=== PATIENT | female | born 1995 | race Caucasian/White ===

== ENCOUNTER 2024-03-09 11:35 | Emergency (ER) | payer BC ==
[2024-03-09 11:41] VITALS: RESP 16
--- NOTE | 2024-03-09 11:54 | ED ---
General Adult HPI - General Chief complaint: Recheck/Abnormal Lab/Rx Stated complaint: Poss 8 weeks preg./issues Time Seen by Provider: 03/09/24 11:51 Source: patient, RN notes reviewed Mode of arrival: ambulatory Limitations: no limitations - History of Present Illness Initial comments: 28-year-old G1, P0 female presenting for test. Patient states last menstrual period was January 11, and had at home positive test beginning of February. Reports she went to [facility] today where they told her her test was negative. She went home and took an at home test, which returned positive. She is here today hoping to have a test. Denies abdominal pain or cramping, vaginal bleeding. Scheduled for OB appointment in March at [facility] Data Home Medications Medication Instructions Recorded Confirmed No Known Home Medications 03/09/24 03/09/24 Allergies Allergy/AdvReac Type Severity Reaction Status Date / Time No Known Allergies Allergy Verified 03/09/24 12:22 Review of Systems ROS Statement: Those systems with pertinent positive or pertinent negative responses have been documented in the HPI. ROS Other: All systems not noted in ROS Statement are negative. Past Medical History Past Medical History: No Reported History History of Any Multi-Drug Resistant Organisms: None Reported Past Surgical History: No Surgical Hx Reported Past Psychological History: No Psychological Hx Reported Smoking Status: Never smoker Past Alcohol Use History: None Reported Past Drug Use History: None Reported General Exam Limitations: no limitations General appearance: alert, in no apparent distress Head exam: Present: atraumatic, normocephalic, normal inspection GI/Abdominal exam: Present: soft, normal bowel sounds. Absent: distended, tenderness, guarding, rebound, rigid Neurological exam: Present: alert, oriented X3 Psychiatric exam: Present: normal affect, normal mood Skin exam: Present: warm, dry, intact, normal color. Absent: rash Course Vital Signs 03/09/24 11:37 Temperature 97.8 F Pulse Rate 93 Respiratory 16 Rate Blood Pressure 120/78 O2 Sat by Pulse 99 Oximetry Medical Decision Making - Medical Decision Making Was pt. sent in by a medical professional or institution (, PA, MANAGER CLINIC, urgent care, hospital, or fdc...) When possible be specific @ -No Did you speak to anyone other than the patient for history (EMS, parent, family, police, friend...)? What history was obtained from this source @ -No Did you review nursing and triage notes (agree or disagree)? Why? @ -I reviewed and agree with nursing and triage notes Were old charts reviewed (outside hosp., previous admission, EMS record, old EKG, old radiological studies, urgent care reports/EKG's, fdc records)? Report findings @ -No old charts were reviewed Differential Diagnosis (chest pain, altered mental status, abdominal pain women, abdominal pain men, vaginal bleeding, weakness, fever, dyspnea, syncope, headache, dizziness, GI bleed, back pain, seizure, CVA, palpatations, mental health, musculoskeletal)? @ - , spontaneous , threatened , molar , ectopic this is not meant to be an all-inclusive list. EKG interpreted by me (3pts min.). @ -None X-rays interpreted by me (1pt min.). @ -None done CT interpreted by me (1pt min.). @ -None done U/S interpreted by me (1pt. min.). @ -None done What testing was considered but not performed or refused? (CT, X-rays, U/S, labs)? Why? @ -None What meds were considered but not given or refused? Why? @ -None Did you discuss the management of the patient with other professionals (professionals i.e. , PA, MANAGER CLINIC, lab, RT, psych nurse, social media executive, polisher sand, teacher, adult parole officer, bilingual case manager)? Give summary @ -No Was smoking cessation discussed for >3mins.? @ -No Was critical care preformed (if so, how long)? @ -No Were there social determinants of health that impacted care today? How? (Homelessness, low income, unemployed, alcoholism, drug addiction, transporta tion, low edu. Level, literacy, decrease access to med. care, intermediate, rehab)? @ -No Was there de-escalation of care discussed even if they declined (Discuss DNR or withdrawal of care, Hospice)? DNR status @ -No What co-morbidities impacted this encounter? (DM, HTN, Smoking, COPD, CAD, Cancer, CVA, ARF, Chemo, Hep., AIDS, mental health diagnosis, sleep apnea, morbid obesity)? @ -None Was patient admitted / discharged? Hospital course, mention meds given and route, prescriptions, significant lab abnormalities, going to OR and other pertinent info. @ -Discharge. This is a 28-year-old female presenting to the ER for test. LMP 01/12/24. Denies abdominal pain, vaginal bleeding. Vitals wnl. Abdomen is soft and nontender. Lab work including CBC, CMP was unremarkable. hCG levels greater than 225,000. Ultrasound reveals single intrauterine gestation estimated 8 weeks 0 days, cardiac activity 174 bpm. Blood type O+. Urinalysis unremarkable. Discussed findings with patient. Advised to follow-up with OB. Return precautions discussed and patient conveys understanding and agrees to plan. Case was discussed with my ED attending Dr. Norman. Patient discharged in stable condition. Diagnosed new problem with uncertain prognosis? @ -No Drug Therapy requiring intensive monitoring for toxicity (Heparin, Nitro, Insulin, Cardizem)? @ -No Were any procedures done? @ -No Diagnosis/symptom? @ -Early Acute, or Chronic, or Acute on Chronic? @ -Acute Uncomplicated (without systemic symptoms) or Complicated (systemic symptoms)? @ -Uncomplicated Side effects of treatment? @ -No Exacerbation, Progression, or Severe Exacerbation? @ -No Poses a threat to life or bodily function? How? (Chest pain, USA, [place], pneumonia, PE, COPD, DKA, ARF, appy, cholecystitis, CVA, Diverticulitis, Homicidal, Suicidal, threat to staff... and all critical care pts) @ -No - Lab Data Result diagrams: 03/09/24 12:59 03/09/24 12:59 Lab Results 03/09/24 03/09/24 03/09/24 Range/Units 12:04 12:04 12:59 WBC 7.0 (3.8-10.6) k/uL RBC 4.96 (3.80-5.40) m/uL Hgb 13.6 (11.4-16.0) gm/dL Hct 42.7 (34.0-46.0) % MCV 86.1 (80.0-100.0) fL MCH 27.5 (25.0-35.0) pg MCHC 32.0 (31.0-37.0) g/dL RDW 12.6 (11.5-15.5) % Plt Count 301 (150-450) k/uL MPV 7.0 Neutrophils % 70 % Lymphocytes % 24 % Monocytes % 5 % Eosinophils % 1 % Basophils % 0 % Neutrophils # 4.9 (1.3-7.7) k/uL Lymphocytes # 1.7 (1.0-4.8) k/uL Monocytes # 0.3 (0-1.0) k/uL Eosinophils # 0.0 (0-0.7) k/uL Basophils # 0.0 (0-0.2) k/uL Sodium (137-145) mmol/L Potassium (3.5-5.1) mmol/L Chloride (98-107) mmol/L Carbon Dioxide (22-30) mmol/L Anion Gap mmol/L BUN (7-17) mg/dL Creatinine (0.52-1.04) mg/dL Est GFR (CKD-EPI)AfAm (>60 ml/min/1.73 sqM) Est GFR (CKD-EPI)NonAf (>60 ml/min/1.73 sqM) Glucose (74-99) mg/dL Calcium (8.4-10.2) mg/dL Total Bilirubin (0.2-1.3) mg/dL AST (14-36) U/L ALT (4-34) U/L Alkaline Phosphatase (38-126) U/L Total Protein (6.3-8.2) g/dL Albumin (3.5-5.0) g/dL HCG, Quant mIU/mL Urine Color Colorless Urine Appearance Clear (Clear) Urine pH 6.5 (5.0-8.0) Ur Specific [place] 1.004 (1.001-1.035) Urine Protein Negative (Negative) Urine Glucose (UA) Negative (Negative) Urine Ketones Negative (Negative) Urine Blood Negative (Negative) Urine Nitrite Negative (Negative) Urine Bilirubin Negative (Negative) Urine Urobilinogen <2.0 (<2.0) mg/dL Ur Leukocyte Esterase Negative (Negative) Urine HCG, Qual Detected (Not Detectd) Blood Type Blood Type Recheck Bld Type Recheck Status 03/09/24 03/09/24 Range/Units 12:59 12:59 WBC (3.8-10.6) k/uL RBC (3.80-5.40) m/uL Hgb (11.4-16.0) gm/dL Hct (34.0-46.0) % MCV (80.0-100.0) fL MCH (25.0-35.0) pg MCHC (31.0-37.0) g/dL RDW (11.5-15.5) % Plt Count (150-450) k/uL MPV Neutrophils % % Lymphocytes % % Monocytes % % Eosinophils % % Basophils % % Neutrophils # (1.3-7.7) k/uL Lymphocytes # (1.0-4.8) k/uL Monocytes # (0-1.0) k/uL Eosinophils # (0-0.7) k/uL Basophils # (0-0.2) k/uL Sodium 137 (137-145) mmol/L Potassium 4.4 (3.5-5.1) mmol/L Chloride 106 (98-107) mmol/L Carbon Dioxide 23 (22-30) mmol/L Anion Gap 8 mmol/L BUN 11 (7-17) mg/dL Creatinine 0.44 L (0.52-1.04) mg/dL Est GFR (CKD-EPI)AfAm >90 (>60 ml/min/1.73 sqM) Est GFR (CKD-EPI)NonAf >90 (>60 ml/min/1.73 sqM) Glucose 86 (74-99) mg/dL Calcium 9.8 (8.4-10.2) mg/dL Total Bilirubin 0.5 (0.2-1.3) mg/dL AST 30 (14-36) U/L ALT 40 H (4-34) U/L Alkaline Phosphatase 60 (38-126) U/L Total Protein 7.5 (6.3-8.2) g/dL Albumin 4.6 (3.5-5.0) g/dL HCG, Quant >862869.0 mIU/mL Urine Color Urine Appearance (Clear) Urine pH (5.0-8.0) Ur Specific [place] (1.001-1.035) Urine Protein (Negative) Urine Glucose (UA) (Negative) Urine Ketones (Negative) Urine Blood (Negative) Urine Nitrite (Negative) Urine Bilirubin (Negative) Urine Urobilinogen (<2.0) mg/dL Ur Leukocyte Esterase (Negative) Urine HCG, Qual (Not Detectd) Blood Type O Positive Blood Type Recheck No Previous Record Bld Type Recheck Status [facility] ONLY Disposition Clinical Impression: at early stage Disposition: HOME SELF-CARE Condition: Stable Instructions (If sedation given, give patient instructions): (ED) Additional Instructions: Follow-up for SEISMIC COMPUTER appointment. Please return to the Emergency Department if symptoms worsen or any other concerns. Is patient prescribed a controlled substance at d/c from ED?: No Referrals: None,Stated [Primary Care Provider] - 1-2 days Time of Disposition: 15:24
[2024-03-09 13:10] LABS: Basophils % (A) 0 %; Eosinophils % (A) 1 %; HCT 42.7 % (34.0-46.0); HGB 13.6 gm/dL (11.4-16.0); Lymphocytes # (A) 1.7 k/uL (1.0-4.8); Lymphocytes % (A) 24 %; MCH 27.5 pg (25.0-35.0); MCV 86.1 fL (80.0-100.0); Monocytes # (A) 0.3 k/uL (0-1.0); Monocytes % (A) 5 %; Neutrophils # (A) 4.9 k/uL (1.3-7.7); Neutrophils % (A) 70 %; Platelet Count 301 k/uL (150-450); RBC 4.96 m/uL (3.80-5.40); RDW 12.6 % (11.5-15.5)
[2024-03-09 13:18] LABS: ALT 40 U/L (4-34); AST 30 U/L (14-36); African American GFR (CKD) >90 (>60 ml/min/1.73 sqM); Albumin 4.6 g/dL (3.5-5.0); Alkaline Phosphatase 60 U/L (38-126); Anion Gap 8 mmol/L; Blood Urea Nitrogen 11 mg/dL (7-17); Calcium 9.8 mg/dL (8.4-10.2); Carbon Dioxide 23 mmol/L (22-30); Chloride 106 mmol/L (98-107); Glucose 86 mg/dL (74-99); Non-African American GFR(CKD) >90 (>60 ml/min/1.73 sqM); Potassium 4.4 mmol/L (3.5-5.1); Sodium 137 mmol/L (137-145); Total Bilirubin 0.5 mg/dL (0.2-1.3); Total Protein 7.5 g/dL (6.3-8.2)
--- NOTE | 2024-03-09 13:55 | US ---
EXAMINATION TYPE: Transabdominal DATE OF EXAM: 03/09/2024 1:28 PM COMPARISON: NONE CLINICAL INDICATION: Female, 28 years old with history of ; No symptoms, patient just wanted a test EXAM PERFORMED: Transabdominal (TA) EXAM MEASUREMENTS: GESTATIONAL AGE / DATING Physician Established: Not yet established Dates by LMP: (8 weeks/1 days) EDC: 10/18/2024 Dates by First Scan: No previous this is first scan Dates by Current Scan for: (8 weeks/0 days) EDC: 10/19/2024 MATERNAL ANATOMY Uterus: 9.2 x 5.7 x 6.7cm Right Ovary: not seen due to overlying bowel gas Left Ovary: 3.2 x 2.5 x 2.7cm Post CDS / Adnexa: wnl Presence of free fluid: no Presence of corpus luteal cyst: not seen Presence of subchorionic bleed: no GESTATION / SURVEY CRL: 1.7cm (8 weeks/0 days) Yolk Sac (normal less than 6mm): 3.0mm Heart Rate: 174 bpm Rhythm: Normal IUP: Viable IUP Date of LMP: 01/12/2024 Beta HcG (if available): Not available at time of exam Urinary bladder is sonolucent. IMPRESSION: 1. Single intrauterine gestation estimated at 8 weeks 0 days gestation based on crown-rump length. Ca rdiac activity measures 174 bpm [facility], , 03/09/2024 1:52 PM
[2024-03-09 14:44] LABS: HCG,Quantitative Serum >225000.0 mIU/mL
[2024-03-09 15:08] LABS: Appearance,Urine Clear (Clear); Bilirubin,Urine Negative (Negative); Blood,Urine Negative (Negative); Color,Urine Colorless; Glucose,Urine (UA) Negative (Negative); Ketones,Urine Negative (Negative); Leukocyte Esterase,Urine Negative (Negative); Nitrite,Urine Negative (Negative); PH, Urine 6.5 (5.0-8.0); Protein,Urine Negative (Negative); Specific Gravity,Urine 1.004 (1.001-1.035); Urobilinogen,Urine <2.0 mg/dL (<2.0)
[2024-03-09 15:58] VITALS: BP 125/76; PULSE 86; TEMP 98.1
== END 2024-03-09 15:58 | disposition home or self-care (01) ==
LOC: EC 11:35
DX: Z32.02 Encounter for pregnancy test, result negative (principal)
CPT/HCPCS: 36415; 76801; 80053; 81003; 81025; 84702; 85025; 86900; 86901; 99284

== ENCOUNTER 2024-08-03 14:35 | Emergency (ER) | payer BC ==
--- NOTE | 2024-08-03 15:45 | ED ---
General Adult HPI - General Chief complaint: Arrhythmia/Palpitations Stated complaint: rapid heart rate Time Seen by Provider: 08/03/24 15:13 Source: patient Mode of arrival: ambulatory Limitations: no limitations - History of Present Illness Initial comments: Dictation was produced using [employer] dictation software. please excuse any grammatical, word or spelling errors. Chief Complaint: 29-year-old female with fever History of Present Illness: Patient 29-year-old female she is here in the emergency department for fever. Patient currently 29 weeks . She went to an urgent care earlier today and was tested for flu COVID and strep. She was discharged from the urgent care. She had a conversation with the nurse at her ELECTRONICS ENGINEERING PROFESSOR's office, Dr. Beard and was told come to the ER. Patient denies any abdominal pain. States that she has a mild sore throat. Denies any ear pain. No nausea vomiting. The ROS documented in this emergency department record has been reviewed and confirmed by me. Those systems with pertinent positive or negative responses have been documented in the HPI. All other systems are other negative and/or noncontributory. - Related Data Home Medications Medication Instructions Recorded Confirmed No Known Home Medications 03/09/24 08/03/24 Allergies Allergy/AdvReac Type Severity Reaction Status Date / Time No Known Allergies Allergy Verified 08/03/24 17:26 Review of Systems ROS Statement: Those systems with pertinent positive or pertinent negative responses have been documented in the HPI. ROS Other: All systems not noted in ROS Statement are negative. Past Medical History Past Medical History: No Reported History History of Any Multi-Drug Resistant Organisms: None Reported Past Surgical History: No Surgical Hx Reported Past Psychological History: No Psychological Hx Reported Smoking Status: Never smoker Past Alcohol Use History: None Reported Past Drug Use History: None Reported General Exam - General Exam Comments Initial Comments: PHYSICAL EXAM: General Impression: Alert and oriented x3, not in acute distress HEENT: Normocephalic atraumatic, extra-ocular movements intact, pupils equal and reactive to light bilaterally, mucous membranes moist, mild oropharyngeal erythema Cardiovascular: Heart regular rate and rhythm Chest: Able to complete full sentences, no retractions, no tachypnea Abdomen: abdomen soft, non-tender, non-distended, no organomegaly Musculoskeletal: Pulses present and equal in all extremities, no peripheral edema Motor: no focal deficits noted Neurological: CN II-XII grossly intact, no focal motor or sensory deficits noted Skin: Intact with no visualized rashes Psych: Normal affect and mood Limitations: no limitations Course Vital Signs 08/03/24 08/03/24 14:58 17:39 Temperature 98.3 F Pulse Rate 133 H 111 H Respiratory 18 Rate Blood Pressure 101/64 O2 Sat by Pulse 98 98 Oximetry EKG Findings - EKG Comments: EKG Findings:: My EKG interpretation: Ventricular rate 117, sinus tachycardia,. 124, QRS 98, QTc 410. No [place] prolongation, no QTC prolongation, no ST or T-wave changes noted. Overall, this EKG is unremarkable Medical Decision Making - Medical Decision Making Was pt. sent in by a medical professional or institution (, PA, NEUROLOGY PHYSICIAN ASSISTANT, urgent care, hospital, or detention...) When possible be specific @ -No Did you speak to anyone other than the patient for history (EMS, parent, family, police, friend...)? What history was obtained from this source @ -No Did you review nursing and triage notes (agree or disagree)? Why? @ -I reviewed and agree with nursing and triage notes Were old charts reviewed (outside hosp., previous admission, EMS record, old EKG, old radiological studies, urgent care reports/EKG's, detention records)? Report findings @ -No old charts were reviewed Differential Diagnosis (chest pain, altered mental status, abdominal pain women, abdominal pain men, vaginal bleeding, musculoskeletal, weakness, fever, dyspnea, syncope, headache, dizziness, GI bleed, back pain, seizure, CVA, palpatations, mental health)? @ -Differential Fever: Pneumonia, viral URI, endocarditis, myocarditis, pericarditis, otitis, sinusitis, peritonsillar Abscess, retropharyngeal Abscess, epiglottitis, per itonitis, appendicitis, Zina cystitis, diverticulitis, hepatitis, colitis, UTI, PID, TOA, pyelonephritis, prostatitis, epididymitis, meningitis, encephalitis, pulmonary embolism, CVA, thyroid storm, pancreatitis, adrenal crisis, cavernous sinus thrombosis, this is not meant to be an all-inclusive list. EKG interpreted by me (3pts min.). @ -See above X-rays interpreted by me (1pt min.). @ -Chest x-ray is nonacute CT interpreted by me (1pt min.). @ -None done U/S interpreted by me (1pt. min.). @ -None done What testing was considered but not performed or refused? (CT, X-rays, U/S, labs)? Why? @ -None What meds were considered but not given or refused? Why? @ -None Was smoking cessation discussed for >3mins.? @ -No Were there social determinants of health that impacted care today? How? (Homelessness, low income, unemployed, alcoholism, drug addiction, transportation, low edu. Level, literacy, decrease access to med. care, [facility], rehab)? @ -No Was there de-escalation of care discussed even if they declined (Discuss DNR or withdrawal of care, Hospice)? DNR status @ -No What co-morbidities impacted this encounter? (DM, HTN, Smoking, COPD, CAD, Cancer, CVA, ARF, Chemo, Hep., AIDS, mental health diagnosis, sleep apnea, morbid obesity)? @ -None Was patient admitted / discharged? Hospital course, mention meds given and route, prescriptions, significant lab abnormalities, going to OR and other pertinent info. @ -29-year-old female is 29 weeks presents with fever and sore throat. She had viral testing and strep testing done at the urgent care was all found to be negative. Vital signs are stable. Patient given IV fluids. Labs are unremarkable. Urinalysis negative. Clinical presentation consistent with viral pharyngitis. Patient discharged advised follow-up with ELECTRONICS ENGINEERING PROFESSOR. Did you discuss the management of the patient with other professionals (professionals i.e. , PA, NEUROLOGY PHYSICIAN ASSISTANT, lab, RT, psych nurse, sr. social media & mobile manager, structural engineering drafting officer, teacher, chief communications officer, case fitter)? Give summary @ -No Was critical care preformed (if so, how long)? @ -No Undiagnosed new problem with uncertain prognosis? @ -No Drug Therapy requiring intensive monitoring for toxicity (Heparin, Nitro, Insulin, Cardizem)? @ -No Were any procedures done? @ -No Diagnosis/symptom? Acute, or Chronic, or Acute on Chronic? Uncomplicated (without systemic symptoms) or Complicated (systemic symptoms)? @ -Viral pharyngitis Side effects of treatment? @ -No Exacerbation, Progression, or Severe Exacerbation? @ -No Poses a threat to life or bodily function? How? (Chest pain, USA, [place], pneumonia, PE, COPD, DKA, ARF, appy, cholecystitis, CVA, Diverticulitis, Homicidal, Suicidal, threat to staff... and all critical care pts) @ -No - Lab Data Result diagrams: 08/03/24 16:15 08/03/24 16:15 Lab Results 08/03/24 08/03/24 08/03/24 Range/Units 16:15 16:15 17:21 WBC 5.7 (3.8-10.6) k/uL RBC 4.28 (3.80-5.40) m/uL Hgb 12.3 (11.4-16.0) gm/dL Hct 36.8 (34.0-46.0) % MCV 86.0 (80.0-100.0) fL MCH 28.8 (25.0-35.0) pg MCHC 33.5 (31.0-37.0) g/dL RDW 13.3 (11.5-15.5) % Plt Count 224 (150-450) k/uL MPV 8.0 Neutrophils % 87 % Lymphocytes % 6 % Monocytes % 5 % Eosinophils % 0 % Basophils % 0 % Neutrophils # 5.0 (1.3-7.7) k/uL Lymphocytes # 0.4 L (1.0-4.8) k/uL Monocytes # 0.3 (0-1.0) k/uL Eosinophils # 0.0 (0-0.7) k/uL Basophils # 0.0 (0-0.2) k/uL Sodium 131 L (137-145) mmol/L Potassium 3.6 (3.5-5.1) mmol/L Chloride 98 (98-107) mmol/L Carbon Dioxide 21 L (22-30) mmol/L Anion Gap 12 mmol/L BUN 5 L (7-17) mg/dL Creatinine 0.53 (0.52-1.04) mg/dL Est GFR (CKD-EPI)AfAm >90 (>60 ml/min/1.73 sqM) Est GFR (CKD-EPI)NonAf >90 (>60 ml/min/1.73 sqM) Glucose 130 H (74-99) mg/dL Calcium 9.0 (8.4-10.2) mg/dL Urine Color Light Yellow Urine Appearance Clear (Clear) Urine pH 6.0 (5.0-8.0) Ur Specific [place] 1.006 (1.001-1.035) Urine Protein Negative (Negative) Urine Glucose (UA) 1+ H (Negative) Urine Ketones 1+ H (Negative) Urine Blood Negative (Negative) Urine Nitrite Negative (Negative) Urine Bilirubin Negative (Negative) Urine Urobilinogen <2.0 (<2.0) mg/dL Ur Leukocyte Esterase Negative (Negative) Disposition Clinical Impression: Viral pharyngitis Disposition: HOME SELF-CARE Condition: Good Instructions (If sedation given, give patient instructions): Pharyngitis (ED) Is patient prescribed a controlled substance at d/c from ED?: No Referrals: None,Stated [Primary Care Provider] - 1-2 days Time of Disposition: 17:46
[2024-08-03] MEDS: SODIUM CHLORIDE 0.9% 1,000 ML IV STA (16:22)
[2024-08-03 16:27] LABS: Basophils % (A) 0 %; Eosinophils % (A) 0 %; HCT 36.8 % (34.0-46.0); HGB 12.3 gm/dL (11.4-16.0); Lymphocytes # (A) 0.4 k/uL (1.0-4.8); Lymphocytes % (A) 6 %; MCH 28.8 pg (25.0-35.0); MCHC 33.5 g/dL (31.0-37.0); Monocytes # (A) 0.3 k/uL (0-1.0); Monocytes % (A) 5 %; Neutrophils % (A) 87 %; Platelet Count 224 k/uL (150-450); RBC 4.28 m/uL (3.80-5.40); RDW 13.3 % (11.5-15.5); WBC 5.7 k/uL (3.8-10.6)
--- NOTE | 2024-08-03 16:43 | XR ---
EXAMINATION TYPE: XR chest 2V DATE OF EXAM: 08/03/2024 4:37 PM COMPARISON: None TECHNIQUE: XR chest 2V Frontal and lateral views of the chest. CLINICAL INDICATION:Female, 29 years old with history of fever; FINDINGS: Lungs/Pleura: There is no evidence of pleural effusion, focal consolidation, or pneumothorax. Pulmonary vascularity: Unremarkable. Heart/mediastinum: Cardiomediastinal silhouette is unremarkable. Musculoskeletal: No acute osseous pathology. IMPRESSION: No acute cardiopulmonary disease/process. [facility], , 08/03/2024 4:40 PM
[2024-08-03 16:51] LABS: African American GFR (CKD) >90 (>60 ml/min/1.73 sqM); Anion Gap 12 mmol/L; Blood Urea Nitrogen 5 mg/dL (7-17); Carbon Dioxide 21 mmol/L (22-30); Chloride 98 mmol/L (98-107); Glucose 130 mg/dL (74-99); Non-African American GFR(CKD) >90 (>60 ml/min/1.73 sqM); Potassium 3.6 mmol/L (3.5-5.1); Sodium 131 mmol/L (137-145)
[2024-08-03 17:36] LABS: Appearance,Urine Clear (Clear); Bilirubin,Urine Negative (Negative); Blood,Urine Negative (Negative); Color,Urine Light Yellow; Glucose,Urine (UA) 1+ (Negative); Ketones,Urine 1+ (Negative); Leukocyte Esterase,Urine Negative (Negative); Nitrite,Urine Negative (Negative); Protein,Urine Negative (Negative); Specific Gravity,Urine 1.006 (1.001-1.035); Urobilinogen,Urine <2.0 mg/dL (<2.0)
[2024-08-03 18:03] VITALS: BP 108/70; PULSE 99; RESP 15; TEMP 98
== END 2024-08-03 18:02 | disposition home or self-care (01) ==
LOC: EC 14:35
DX: O98.513 Other viral diseases complicating pregnancy, third trimester (principal); J02.9 Acute pharyngitis, unspecified; Z3A.29 29 weeks gestation of pregnancy
CPT/HCPCS: 36415; 71046; 80048; 81003; 85025; 96360; 99285

== ENCOUNTER 2024-09-24 10:36 | Inpatient (IN) | payer BC ==
[2024-09-24] MEDS ORDERED: TERBUTALINE 1 MG/ML VIAL SQ PRN (10:59)
[2024-09-24] MEDS ORDERED: miSOPROStoL 200 MCG TAB RECTAL PRN (10:59)
[2024-09-24] MEDS ORDERED: miSOPROStoL 200 MCG TAB PO PRN (10:59)
[2024-09-24] MEDS ORDERED: OXYTOCIN 10 UNIT/ML 1 ML VIAL IM PRN (10:59)
[2024-09-24] MEDS ORDERED: LIDOCAINE 0.5% (PF) 5 MG/ML (50 ML SDV) SQ PRN (10:59)
[2024-09-24] MEDS ORDERED: CARBOPROST TROMETHAMINE 250 MCG/ML 1 ML AMP IM PRN (10:59)
[2024-09-24] MEDS ORDERED: TRANEXAMIC 1,000 MG/100ML-NACL 1,000 MG in EMPTY BAG 1 BAG IV PRN (10:59)
[2024-09-24] MEDS ORDERED: METHYLERGONOVINE 0.2 MG/ML 1 ML AMP IM PRN (10:59)
[2024-09-24] MEDS ORDERED: OXYTOCIN 30 UNITS/500 ML NS 30 UNIT in SALINE 1 500ML.BAG IV SCH (11:00)
[2024-09-24] MEDS ORDERED: NALBUPHINE 10 MG/ML (10 ML MDV) IV PRN (11:53)
--- NOTE | 2024-09-24 11:53 | P.HPOB ---
History of Present Illness H&P Date: 09/24/24 Chief Complaint: IUP at 36-4/7 weeks, P PROM This is a 29-year-old G1, P0 at 36-4/7 weeks that presents to labor and delivery with complaints of P PROM at 430 this morning. Patient notes the fluid to be clear in nature. Patient is noting irregular contractions, getting more uncomfortable. Patient has been receiving routine care which has been essentially uncomplicated. Patient notes good movement Estimated due date of 10/18 based on last menstrual period consistent with 12-week ultrasound On blood work this patient is a blood type of O+, rubella status immune, hepatitis B surface antigen negative, hepatitis C negative, HIV negative group beta strep culture pending Review of Systems Constitutional: Denies chills, Denies fatigue, Denies fever Ears, nose, mouth and throat: Denies headache Cardiovascular: Reports leg edema Respiratory: Denies dyspnea Gastrointestinal: Denies constipation, Denies diarrhea, Denies nausea, Denies vomiting Genitourinary: Reports Past Medical History Past Medical History: No Reported History History of Any Multi-Drug Resistant Organisms: None Reported Past Surgical History: No Surgical Hx Reported Past Anesthesia/Blood Transfusion Reactions: No Reported Reaction Past Psychological History: No Psychological Hx Reported Smoking Status: Never smoker Past Alcohol Use History: None Reported Past Drug Use History: None Reported Medications and Allergies Home Medications Medication Instructions Recorded Confirmed Type Vit No.179/Iron/Folic 1 tab PO DAILY 09/24/24 09/24/24 History [ Tablet] Allergies Allergy/AdvReac Type Severity Reaction Status Date / Time No Known Allergies Allergy Verified 09/24/24 10:42 Exam Osteopathic Statement: *. No significant issues noted on an osteopathic structural exam other than those noted in the History and Physical/Consult. Vital Signs Temp Pulse Resp BP Pulse Ox 09/24/24 10:58 98.4 F 108 H 16 130/66 99 Intake and Output 09/23/24 09/24/24 09/24/24 22:59 06:59 14:59 Other: Weight 77.111 kg Targeted physical exam is performed this date in general is well-nourished well- developed female in no acute distress, breathing is nonlabored, abdomen is gravid, cervical exam per RN upon admission was 180-2 vertex presentation, heart tones are noted to be category 1 and she is yue irregularly. Assessment and Plan (1) 36 to 37 weeks gestation of Current Visit: Yes Status: Acute Code(s): GWQ7028 - SNOMED Code(s): 791857894 (2) premature rupture of membranes Current Visit: Yes Status: Acute Code(s): O42.919 - PRETRM LUC ROM, UNSP TIME BETW RUPT AND ONST LABR, UNSP TRI SNOMED Code(s): 865622700 Plan: This is a 29-year-old 1 para 0 at 36-4/7 weeks who presents to labor and delivery with complaints of PPROM at 4:30 AM. Discussed IV antibiotics for prophylaxis given unknown GBS and gestational age. Recommendation of Pitocin augmentation of labor given it has been 7 hours since rupture of membranes, risk of maternal and infection discussed and questions are answered. Patient has an extensive plan which was reviewed in the office, patient will ask for pain medication when she desires.
[2024-09-24] MEDS: AMPICILLIN 2,000 MG in SODIUM CHLORIDE 0.9% 100 ML IVPB STA (11:55)
[2024-09-24] MEDS: LACTATED RINGERS 1,000 ML IV SCH (11:56)
[2024-09-24] MEDS: OXYTOCIN 30 UNITS/500 ML NS 30 UNIT in SALINE 1 500ML.BAG IV SCH (11:59)
[2024-09-24 12:05] LABS: Basophils # (A) 0.04 10*3/uL (0.00-0.10); Basophils % (A) 0.3 %; HCT 39.9 % (37.2-46.3); HGB 13.7 g/dL (12.0-15.0); Lymphocytes # (A) 2.28 10*3/uL (0.90-5.00); Lymphocytes % (A) 15.3 %; MCHC 34.3 g/dL (32.0-37.0); MCV 84.4 fL (80.0-97.0); Mean Platelet Volume 11.1 fL (9.5-12.2); Monocytes # (A) 1.07 10*3/uL (0.20-1.00); Monocytes % (A) 7.2 %; Neutrophils % (A) 76.7 %; Platelet Count 327 10*3/uL (140-440); RBC 4.73 10*6/uL (4.10-5.20); RDW 12.8 % (11.5-14.5); WBC 14.87 10*3/uL (4.50-10.00)
[2024-09-24] MEDS: AMPICILLIN 1,000 MG in SODIUM CHLORIDE 0.9% 50 ML IVPB SCH (15:18)
[2024-09-24] MEDS ORDERED: diphenhydrAMINE 25 MG CAP PO PRN (23:12)
[2024-09-24] MEDS ORDERED: diphenhydrAMINE 50 MG/ML 1 ML VIAL IVP PRN ×2 (23:12)
[2024-09-24] MEDS ORDERED: SIMETHICONE 80 MG CHEWABLE PO PRN (23:12)
[2024-09-24] MEDS ORDERED: METOCLOPRAMIDE 5 MG/ML 2 ML VIAL IVP PRN (23:12)
[2024-09-24] MEDS ORDERED: NALOXONE 0.4 MG/ML 1 ML VIAL IV PRN (23:12)
[2024-09-24] MEDS ORDERED: ONDANSETRON 4 MG/2 ML VIAL IVP PRN (23:12)
[2024-09-24] MEDS ORDERED: diphenhydrAMINE 50 MG CAP PO PRN (23:12)
[2024-09-24] MEDS ORDERED: ZOLPIDEM 5 MG TAB PO PRN (23:12)
[2024-09-24] MEDS: CITRIC ACID-SODIUM CITRATE 15 ML CUP PO ONE (23:17)
[2024-09-24] MEDS: ceFAZolin 2 GM in DEXTROSE 5% IN WATER 50 ML IVPB ONE (23:22)
[2024-09-24] MEDS ORDERED: OXYTOCIN 30 UNITS/500 ML NS BAG IV ONE (23:24)
[2024-09-24] MEDS ORDERED: ONDANSETRON 4 MG/2 ML VIAL ONE (23:24)
[2024-09-24] MEDS ORDERED: MORPHINE SULFATE (PF) 0.3 MG/0.3 ML SYR ONE (23:24)
--- NOTE | 2024-09-25 00:13 | P.OP ---
Date of Procedure: 09/24/24 Preoperative Diagnosis: IUP at 36-4/7 weeks P PROM Arrest of descent Postoperative Diagnosis: Same Procedure(s) Performed: Primary low-transverse section Anesthesia: spinal Surgeon: Marce Renteria Environmental Associate #1: Colette Esquivel Estimated Blood Loss (ml): 500 IV fluids (ml): 700 Urine output (ml): 200 (Clear yellow) Pathology: other (Placenta) Condition: stable Disposition: observation Indications for Procedure: 29-year-old G1, P0 at 36-4/7 weeks that presented to labor and delivery with complaints of rupture of membranes around 430 this morning. Patient noted irregular contractions and presented to labor and delivery around 10 AM. Patient noted irregular contractions and Pitocin augmentation of labor was begun. Patient had noted tachysystole therefore Pitocin was discontinued. Tammie ent made good progress through the day vaginal becoming completely dilated. At approximately 1915 patient was noted to be completely dilated and began pushing. After approximately 4 hours of pushing patient has not made descent further then -1 station, increasing caput is appreciated. Findings of exam are discussed with patient patient significant other and her picture engraver. Recommendation for primary secondary to arrest of descent are discussed. Anesthesia was notified. Patient and agree to proceed with primary Operative Findings: Normal male delivered in OP presentation weight 7 pounds 2 ounces, @ 2340, Apgars of 3, 7, 9 at 1 5 and 10 minutes. Description of Procedure: The patient was prepped and draped in the usual fashion after spinal anesthesia was administered by the anesthesia department. A Pfannenstiel incision was made and extended of the abdominal cavity without difficulty. The bladder peritoneum was elevated and incised and reflected distally. A 2 cm incision was made in the transverse plane of the lower uterine segment to enter the uterus at which time clear fluid was noted. The incision was extended in both directions using the bandage scissors. The head was encountered within the field and delivered up and through the incision where the nose and mouth were thoroughly s uctioned. Remainder of the was delivered onto the surgical field where the cord was doubly clamped, cut, and the was passed for resuscitative measures with weight and Apgars as noted above. The placenta was delivered manually, intact, and was grossly normal with a grossly normal three-vessel cord. The uterus was exteriorized and the interior cavity of the uterus swept of any remaining placental and membranous fragments with a laparotomy sponge. The margins of the incision were grasped with Ash clamps and the incision closed in 2 layers. First layer was a running locking layer of 0 vicryl from margin to margin followed by a second layer of imbricating 0 vicryl from margin to margin. Any small points of bleeding were then made hemostatic with the Bovie. Once hemostasis was achieved, the posterior cul-de-sac was suctioned with a guard and the uterine and ovarian findings are as noted above. The uterus was replaced within the abdominal cavity and the gutters swept of any remaining blood fluid or clot. The incision was again reexamined and hemostasis was noted to be excellent. Any small point of bleeding were made hemostatic with the Bovie. Once hemostasis was achieved the parietal peritoneum was loosely reapproximated. The layer of muscles were examined and made hemostatic with the Bovie. Attention was then turned to the fascia which was closed with 2 running stitches of 0 Vicryl proceeding from the lateral margins to the midpoint. The subcutaneous tissues were irrigated, made hemostatic with the Bovie, and reapproximated with a running stitch of 30 vicryl. The skin was reapproximated with 4-0 vicryl. Estimated blood loss for the case was approximately 600 mL. All sponge instrument and needle counts are correct. There were no complications. The patient tolerated the procedure well and proceeded to the recovery room in stable condition. Both mother and infant are resting comfortably in recovery.
[2024-09-25] MEDS: ACETAMINOPHEN IV (For NPO) 1,000 MG in EMPTY BAG 1 BAG IVPB ONE (00:54)
[2024-09-25] MEDS: LACTATED RINGERS 1,000 ML IV SCH (02:09)
[2024-09-25] MEDS: ACETAMINOPHEN TAB 500 MG TAB PO SCH (02:09)
--- NOTE | 2024-09-25 06:22 | P.PN ---
Progress Note - Text Progress Note Date: 09/25/24 Postoperative day 1 status post section under spinal anesthesia, and intrathecal morphine given for postoperative analgesia, patient doing well, there is no anesthesia related complications, Patient had no headache, vital signs stable , Assessment and plan= postop day 1 status post , doing well there is no anesthesia related complication.
[2024-09-25 06:23] LABS: Basophils # (A) 0.03 10*3/uL (0.00-0.10); Basophils % (A) 0.1 %; HCT 35.2 % (37.2-46.3); HGB 12.1 g/dL (12.0-15.0); Lymphocytes # (A) 2.08 10*3/uL (0.90-5.00); Lymphocytes % (A) 8.8 %; MCH 28.9 pg (27.0-32.0); MCHC 34.4 g/dL (32.0-37.0); MCV 84.2 fL (80.0-97.0); Mean Platelet Volume 10.4 fL (9.5-12.2); Monocytes # (A) 1.66 10*3/uL (0.20-1.00); Neutrophils # (A) 19.67 10*3/uL (1.80-7.70); Neutrophils % (A) 83.4 %; Platelet Count 271 10*3/uL (140-440); RBC 4.18 10*6/uL (4.10-5.20); RDW 13.2 % (11.5-14.5); WBC 23.61 10*3/uL (4.50-10.00)
[2024-09-25] MEDS: IBUPROFEN IV 800 MG in SODIUM CHLORIDE 0.9% 250 ML IV ONE (06:38)
--- NOTE | 2024-09-25 08:51 | P.PNOBGPC ---
Subjective - Subjective Principal diagnosis: Postop day 0 status post primary Interval history: Patient is doing well postoperatively, Enriquez catheter was just removed. She states her pain is well-controlled. She is ambulating without difficulty. Patient reports: Reports appetite normal, Reports voiding normally, Reports pain well controlled, Reports ambulating normally : doing well Objective - Vital Signs Latest vital signs: Vital Signs Temp Pulse Resp BP Pulse Ox 09/25/24 08:36 98.4 F 74 16 103/64 09/25/24 04:00 98.1 F 75 16 117/66 97 09/25/24 02:11 63 16 114/59 97 09/25/24 01:56 97.0 F L 61 16 117/59 97 09/25/24 01:41 63 16 123/63 98 09/25/24 01:26 61 16 114/56 97 09/25/24 01:11 54 L 16 112/57 95 09/25/24 00:56 64 16 111/57 98 09/25/24 00:41 61 16 102/55 97 09/25/24 00:26 60 16 97/54 99 09/25/24 00:11 97.6 F 63 18 109/55 99 09/24/24 10:58 98.4 F 108 H 16 130/66 99 09/24/24 10:41 98.4 F 108 H 16 130/66 99 Intake and Output 09/24/24 09/25/24 09/25/24 22:59 06:59 14:59 Intake Total 24.4 Output Total 1350 500 Balance -1325.6 -500 Intake: Intake, IV Titration 24.4 Amount Oxytocin 30 Units/500 ml 24.4 Ns 30 unit In Saline 1 500ml.bag @ Per Protocol IV .Q0M [facility] Rx#:[id number] Output: Urine 650 500 Uretheral (Enriquez) 200 Output, Quantitative 700 Blood Loss Other: Voiding Method Indwelling Catheter # Voids 0 - Exam Extremities: Present: normal, edema Abdomen: Present: normal appearance, soft Incision: Present: normal, dry, intact, dressed Uterus: Present: normal, firm - Labs Labs: Abnormal Lab Results - Last 24 Hours (Table) 09/24/24 09/25/24 Range/Units 11:27 06:01 WBC 14.87 H 23.61 H (4.50-10.00) 10*3/uL Hct 35.2 L (37.2-46.3) % Immature Gran # 0.08 H 0.17 H (0.00-0.04) 10*3/uL Neutrophils # 11.40 H 19.67 H (1.80-7.70) 10*3/uL Monocytes # 1.07 H 1.66 H (0.20-1.00) 10*3/uL Eosinophils # 0.00 L 0.00 L (0.04-0.35) 10*3/uL Assessment and Plan (1) 36 to 37 weeks gestation of Current Visit: Yes Status: Acute Code(s): [id number] - SNOMED Code(s): 333255110 (2) premature rupture of membranes Current Visit: Yes Status: Acute Code(s): O42.919 - PRETRM LUC ROM, UNSP TIME BETW RUPT AND ONST LABR, UNSP TRI SNOMED Code(s): 412416644 (3) Arrest of descent, delivered, current hospitalization Current Visit: Yes Status: Acute Code(s): O62.1 - SECONDARY UTERINE INERTIA SNOMED Code(s): 91036063 (4) Status post primary low transverse section Current Visit: Yes Status: Acute Code(s): Z98.891 - HISTORY OF UTERINE SCAR FROM PREVIOUS SURGERY SNOMED Code(s): 439376690 Plan: Doing well postoperatively Continue routine postoperative care Breast pump prescription to pharmacy Advance diet to regular Encourage increase ambulation
[2024-09-25] MEDS: PRENATAL VIT-IRON-FOLIC ACID 1 EACH TABLET PO SCH (09:02)
[2024-09-25] MEDS: ACETAMINOPHEN TAB 500 MG TAB PO PRN (09:33)
[2024-09-25] MEDS: SENNOSIDES-DOCUSATE SODIUM 1 EACH TAB PO SCH (13:45)
[2024-09-25] MEDS: IBUPROFEN 800 MG TAB PO SCH (13:46)
[2024-09-26] MEDS ORDERED: IBUPROFEN 800 MG TAB PO SCH
--- NOTE | 2024-09-26 12:13 | P.PNOBGPC ---
Subjective - Subjective Principal diagnosis: Postop day 2 Interval history: Patient is doing well postoperatively. She is ambulating and voiding without difficulty. She states her pain is well-controlled. Her lochia is minimal to moderate. Breast-feeding is going well. Patient reports: Reports appetite normal, Reports voiding normally, Reports pain well controlled, Reports ambulating normally [place]: doing well, nursing well Objective - Vital Signs Latest vital signs: Vital Signs Temp Pulse Pulse Resp BP Pulse Ox 09/26/24 11:44 98.0 F 71 18 115/71 09/26/24 07:22 98.4 F 65 16 114/74 97 09/26/24 00:00 52 L 16 110/65 96 09/25/24 15:57 98.5 F 81 16 103/67 98 09/25/24 12:40 98.2 F 77 16 100/62 Intake and Output 09/25/24 09/26/24 09/26/24 22:59 06:59 14:59 Intake Total 480 Balance 480 Intake: Oral 480 Other: # Voids 1 2 2 - Exam Extremities: Present: normal, edema Abdomen: Present: normal appearance Incision: Present: normal, dry, intact, dressed Uterus: Present: normal, firm Assessment and Plan (1) 36 to 37 weeks gestation of Current Visit: Yes Status: Acute Code(s): [id number] - SNOMED Code(s): 204010244 (2) premature rupture of membranes Current Visit: Yes Status: Acute Code(s): O42.919 - PRETRM LUC ROM, UNSP TIME BETW RUPT AND ONST LABR, UNSP TRI SNOMED Code(s): 522432157 (3) Arrest of descent, delivered, current hospitalization Current Visit: Yes Status: Acute Code(s): O62.1 - SECONDARY UTERINE INERTIA SNOMED Code(s): 17460459 (4) Status post primary low transverse section Current Visit: Yes Status: Acute Code(s): Z98.891 - HISTORY OF UTERINE SCAR FROM PREVIOUS SURGERY SNOMED Code(s): 591046584 Plan: Doing well postoperatively, continue routine postoperative care Dissipate discharge home tomorrow
--- NOTE | 2024-09-27 12:55 | P.PNOBGPC ---
Subjective - Subjective Principal diagnosis: Postop day 3 Interval history: Patient is overall feeling well. She is ambulating and voiding without difficulty. She has had a bowel movement without difficulty. Her lochia is minimal. She is breast-feeding with some difficulty. Pain is well-controlled Patient reports: Reports appetite normal, Reports voiding normally, Reports pain well controlled, Reports ambulating normally : doing well (On bili lights currently for elevated bilirubin level) Objective - Vital Signs Latest vital signs: Vital Signs Temp Pulse Resp BP Pulse Ox 09/27/24 08:00 98.0 F 64 16 112/74 99 09/26/24 23:15 98.3 F 60 16 107/71 99 09/26/24 15:58 98.1 F 74 16 117/79 Intake and Output 09/26/24 09/27/24 09/27/24 22:59 06:59 14:59 Intake Total 1080 Balance 1080 Intake: Oral 1080 Other: # Voids 2 1 1 # Bowel Movements 2 1 1 - Exam Extremities: Present: normal, edema Abdomen: Present: normal appearance, soft Incision: Present: normal, dry Uterus: Present: normal, firm Assessment and Plan (1) 36 to 37 weeks gestation of Current Visit: Yes Status: Acute Code(s): LSS3002 - SNOMED Code(s): 813992007 (2) premature rupture of membranes Current Visit: Yes Status: Acute Code(s): O42.919 - PRETRM LUC ROM, UNSP TIME BETW RUPT AND ONST LABR, UNSP TRI SNOMED Code(s): 161398751 (3) Arrest of descent, delivered, current hospitalization Current Visit: Yes Status: Acute Code(s): O62.1 - SECONDARY UTERINE INERTIA SNOMED Code(s): 25514389 (4) Status post primary low transverse section Current Visit: Yes Status: Acute Code(s): Z98.891 - HISTORY OF UTERINE SCAR FROM PREVIOUS SURGERY SNOMED Code(s): 836439717 Plan: Doing well postoperatively, continue routine postoperative care. Patient plans on staying while is being treated for jaundice
--- NOTE | 2024-09-28 09:25 | P.DS ---
Providers Date of admission: 09/24/24 10:57 Expected date of discharge: 09/28/24 Attending physician: Marce Renteria Primary care physician: Stated None - Discharge Diagnosis(es) (1) 36 to 37 weeks gestation of Current Visit: Yes Status: Acute (2) premature rupture of membranes Current Visit: Yes Status: Acute (3) Arrest of descent, delivered, current hospitalization Current Visit: Yes Status: Acute (4) Status post primary low transverse section Current Visit: Yes Status: Acute Hospital Course: This is a 29-year-old 1 now para 1 that presented to labor and delivery on 09/24 with complaints of spontaneous rupture of membranes around 4:30 AM. Patient presented to labor and delivery around 03 13/-10. Patient was admitted to labor and delivery confirm rupture of membranes with AmniSure. Patient was noted to be 1 cm at the time of admission. Patient was counseled on augmentation of labor and antibiotics given rupture of membranes at 36 weeks. Patient agreed to antibiotics and was unsure about Pitocin augmentation. A small amount of Pitocin was begun and discontinued after nonreassuring heart tones were noted. Category 2 was resolved with fluids and position changes. Patient made progress through labor eventually using nitrous for pain control. Patient did progressed to complete dilation. After approximately 4 hours of pushing no descent was appreciated. Patient was counseled on need for primary low-transverse section. Patient was taken back to the operating suite where spinal anesthesia was found to be adequate. Patient delivered a viable male at 2340, weight of 7 pounds 2 ounces occiput posterior presentation. For full details on the please see the dictated operative report. Patient's postoperative course has been uneventful. And is postoperative day #4 she is ambulating and voiding without difficulty. She is tolerating a regular diet without nausea or vomiting. States her pain is well-controlled. She is noting a mild headache, controlled with Tylenol and ibuprofen. She is anxious for discharge home later today. Patient Condition at Discharge: Good Plan - Discharge Summary New Discharge Prescriptions: No Action Vit No.179/Iron/Folic [ Tablet] 1 tab PO DAILY Discharge Medication List Vit No.179/Iron/Folic [ Tablet] 1 tab PO DAILY 09/24/24 [History] Follow up Appointment(s)/Referral(s): Marce Renteria DO [Doctor of Osteopathic Medicine] - 10/09/24 1:45 pm (@Post appoinment 11/08/24 @1:00PM) Patient Instructions/Handouts: (DC), (GEN) Activity/Diet/Wound Care/Special Instructions: No tub or intercourse until 6 weeks . [id number] ibuprofen 600 mg or 3 tablets every 6 hours as needed for pain. Routine postoperative check in 2 weeks. Discharge Disposition: HOME SELF-CARE
[2024-09-28 12:16] VITALS: BP 128/80; PULSE 58; TEMP 98.2
[2024-09-28 17:22] VITALS: RESP 18
== END 2024-09-28 17:30 | disposition home or self-care (01) | DRG 788 ==
LOC: FBPOP 10:36 → 4FBP 10:57
PROVIDERS: ADMIT Obstetrics & Gynecology Obstetrics; ATTEND Obstetrics & Gynecology Obstetrics
PROC: 10D00Z1 Extraction of Products of Conception, Low, Open Approach (ICD-10-PCS; principal; 2024-09-24 23:40)
DX: O42.913 Preterm premature rupture of membranes, unspecified as to length of time between rupture and onset of labor, third trimester (principal); O32.8XX0 Maternal care for other malpresentation of fetus, not applicable or unspecified; O62.1 Secondary uterine inertia; O76 Abnormality in fetal heart rate and rhythm complicating labor and delivery; Z3A.36 36 weeks gestation of pregnancy; Z37.0 Single live birth
CPT/HCPCS: 59025; 84112; 85025; 86850; 86900; 86901; 99213